=== PATIENT | female | born 1930 | race Caucasian/White ===

== ENCOUNTER 2017-07-18 13:49 | Outpatient (CLI) | payer MEDICARE, BC | END 2017-07-18 13:50 | disposition home or self-care (01) | LOC: ULT 13:49 | PROVIDERS: ATTEND Family Medicine | DX: I08.1 Rheumatic disorders of both mitral and tricuspid valves (principal) | CPT/HCPCS: 93306 ==

== ENCOUNTER 2017-10-26 10:49 | Outpatient (CLI) | payer MEDICARE, BC ==
--- NOTE | 2017-10-26 13:22 | RAD ---
TWO VIEWS ABDOMEN: 10/26/2017 HISTORY: Abdominal pain for two weeks. Eructation. FINDINGS: The visualized lung bases are clear. There is calcification of the mitral valve annulus. The bowel gas pattern is overall nonspecific. No suspicious calcifications are identified. Degenerative paulino es are seen in the spine. There is a question of height loss of a few lower thoracic vertebral jaun s, but this may be projectional on this frontal view of the abdomen. IMPRESSION: 1. Question of mild height loss of a few lower thoracic vertebral bodies, but this could be projecti onal in origin, as a lateral view was not obtained for a more adequate evaluation. If the patient do es have back pain, views of the thoracic spine are recommended. 2. Nonspecific bowel gas pattern. POS: JJ
== END 2017-10-26 10:50 | disposition home or self-care (01) ==
LOC: SCSRAD 10:49
PROVIDERS: ATTEND Family Medicine
DX: R14.2 Eructation (principal)
CPT/HCPCS: 36415; 74019